=== PATIENT | female | born 1990 | race Caucasian/White ===

== ENCOUNTER 2022-08-19 11:03 | Emergency (ER) | payer OTHER ==
[~2022-08-19] VITALS: Ht 157.5 cm; Wt 53.5 kg
[2022-08-19] MEDS ORDERED: DICLOFENAC SODI75 MG PO (21:52)
[2022-08-19] MEDS ORDERED: NORFLEX100MG PO (21:52)
== END 2022-08-19 22:14 | disposition home or self-care (01) ==
LOC: ER 11:03
DX: R10.2 Pelvic and perineal pain (principal)

== ENCOUNTER 2023-01-29 11:37 | Emergency (ER) | payer OTHER ==
[~2023-01-29] VITALS: Ht 157.5 cm; Wt 51.7 kg
[~2023-01-29 11:37] MED LIST: DICLOFENAC SODI75 MG PO; NORFLEX100MG PO
== END 2023-01-29 15:24 | disposition home or self-care (01) ==
LOC: ER 11:37
DX: N93.8 Other specified abnormal uterine and vaginal bleeding (principal); Z88.6 Allergy status to analgesic agent

== ENCOUNTER 2024-09-30 19:18 | Emergency (ER) | payer OTHER ==
[~2024-09-30] VITALS: Ht 157.5 cm; Wt 56.7 kg
[2024-09-30] MEDS ORDERED: CEFTRIAXONE SODIUM 1,000 MG VIAL IV ONE (20:30)
[2024-09-30] MEDS ORDERED: 0.9 % SODIUM CHLORIDE 1,000 ML IV SCH (20:30)
[2024-09-30] MEDS ORDERED: CEFTRIAXONE SODIUM 1,000 MG VIAL ONE (21:12)
[2024-09-30 21:17] LABS: HEMATOCRIT 36.6 % (36.0-45.00); HEMOGLOBIN 12.8 g/dL (12.0-15.00); MEAN CELL VOLUME 91.3 fL (80.00-100.00); MEAN CORPUSCULAR HEMOGLOBIN 31.8 pg (27.00-32.0); MEAN CORPUSCULAR HGB CONC 34.9 g/dl (32.0-36.0); PLATELET COUNT 277 K/uL (150-450); RED BLOOD COUNT 4.01 M/uL (4.00-6.00); RED CELL DISTRIBUTION WIDTH 13.9 % (11.5-14.5)
[2024-09-30 21:38] LABS: CREATININE SERUM 0.65 mg/dL (0.55-1.02); GFR 104.97; POTASSIUM 3.85 mEq/L (3.5-5.1)
[2024-09-30] MEDS ORDERED: ACETAMINOPHEN 500 MG GEL..CAP PO ONE (23:45)
[2024-09-30 23:50] LABS: URINE APPEARANCE Clear; URINE BILIRRUBIN Negative (NEGATIVE); URINE BLOOD Negative; URINE COLOR Yellow; URINE GLUCOSE Negative (NEGATIVE); URINE KETONE Trace (NEGATIVE); URINE LEUKOCYTE Negative; URINE NITRATE Negative; URINE PROTEIN Negative (NEGATIVE); URINE UROBILINOGEN 0.2 E.U./dl
[2024-09-30 23:54] LABS: URINE BACTERIA 396.3 uL (0.0-1933); URINE EPITHELIAL CELLS 21.6 uL (0.0-38.8); URINE RBC 7.9 uL (0.0-20.8); URINE WBC 3.7 uL (0.0-23.2)
[2024-10-01] MEDS ORDERED: ACETAMINOPHEN WITH CODEINE 1 UDTAB TABLET PO ONE (09:15)
== END 2024-10-01 11:31 | disposition home or self-care (01) ==
LOC: ER 19:20
PROVIDERS: Emergency Medicine
DX: L02.31 Cutaneous abscess of buttock (principal); Z20.822 Contact with and (suspected) exposure to COVID-19; Z88.5 Allergy status to narcotic agent